=== PATIENT | male | born 1995 | race Caucasian/White ===

== ENCOUNTER 2019-01-10 15:13 | Emergency (ER) | payer OTHER ==
[~2019-01-10] VITALS: Ht 175.3 cm; Wt 69.9 kg
[~2019-01-10 15:13] MED LIST: CELEBREX200MG PO; OMEPRAZOLE10 MG; SKELAXIN800 MG PO
[2019-01-10] MEDS ORDERED: ZITHROMAX500 MG PO (20:29)
[2019-01-10] MEDS ORDERED: KETO10TA2 PO (20:29)
== END 2019-01-10 20:39 | disposition home or self-care (01) ==
LOC: ER 15:13
DX: J31.2 Chronic pharyngitis (principal)

== ENCOUNTER 2020-08-15 12:32 | Outpatient (CLI) | payer OTHER ==
[~2020-08-15 12:32] MED LIST changes: +KETO10TA2 PO; +ZITHROMAX500 MG PO
== END 2020-08-15 12:50 | disposition home or self-care (01) ==
LOC: SONOGRAMA 12:32
PROVIDERS: ATTEND Family Medicine
DX: M65.261 Calcific tendinitis, right lower leg (principal)

== ENCOUNTER 2020-09-26 09:25 | Outpatient (CLI) | payer OTHER | END 2020-09-26 10:08 | disposition home or self-care (01) | LOC: OFIC 805 09:25 | PROVIDERS: ATTEND Otolaryngology Otology & Neurotology | DX: H60.8X1 Other otitis externa, right ear (principal); H61.21 Impacted cerumen, right ear ==